=== PATIENT | female | born 1980 | race Caucasian/White ===

== ENCOUNTER → 2020-08-26 09:43 | Outpatient (BNVA) | payer OTHER, SELFPAY | PROVIDERS: Family Provider Family Medicine; PCP Family Medicine; Visit Provider Nurse Practitioner | DX: Z79.899 Other long term (current) drug therapy (principal) | CPT/HCPCS: 80061; 80178; 83036; 83721; 84443 ==

== ENCOUNTER 2020-12-30 10:43 | Emergency (ER) | payer SELFPAY ==
[2020-12-30 11:01] VITALS: BP 143/90; PULSE 93; RESP 18; TEMP 36.3; O2SAT 99; BMI 35.2
--- NOTE | 2020-12-30 11:03 | ED_ITS ---
HPI - Skin/Abscess/Foreign Bdy General: Chief complaint: Skin/Abscess/Foreign Body Stated complaint: abscess Time Seen by Provider: 12/30/20 10:45 Source: patient Mode of arrival: ambulatory Limitations: no limitations History of Present Illness: HPI narrative: Patient is a nice 40-year-old female who presents to ED today with a complaint of an abscess near her genitals. Patient tells me she noticed area over the past week. She states approximately 2 days ago the abscess began draining on its own. She reports a large amount of foul-smelling drainage. Patient states she has no history of staph or MRSA. She has been urinating and defecating normally and non- painfully. She has not been running fevers. MD complaint: abscess/boil Onset (ago): day(s) Tetanus up to date: yes Location: genitals Severity: moderate Pain Consistency: constant Relieving factors: none Exacerbating factors: other (walking, palpation) Context: none Associated symptoms: Reports no associated symptoms; Deny chills, fever(s), nausea or vomiting Review of Systems Const: Denies: fever(s), chills, body aches, fatigue or malaise Card: Denies: chest pain Resp: Denies: dyspnea GI: Denies: abdominal pain, nausea, vomiting, pain on defecation, rectal pain, rectal swelling, rectal itching, change in stool character, hematochezia or white/light colored stool : Denies: dysuria or hematuria Skin/Breast: Reports: other (abscess) [facility] ED PFSH: Medical History (Updated 12/30/20 @ 12:14 by MARGARET Martinez) Bipolar disorder, in full remission, most recent episode hypomanic [place] use On high dose antipsychotic drug therapy Social History (Updated 12/30/20 @ 11:07 by Evert Tee RN) Smoking and tobacco status: current every day smoker e-cigarettes Alcohol intake: never Substance/Drug Use: current Substance/Drug use frequency: few times a month Substance/Drug use type: Marijuana Physical Exam Const: COMMON NORMALS: no acute distress, patient oriented x3, no limitations and alert GENERAL APPEARANCE: cooperative NUTRITIONAL APPEARANCE: obese ORIENTATION/CONSCIOUSNESS: Yes awake, Yes oriented to person, Yes oriented to p lace and Yes oriented to time HENMT: COMMON NORMALS: normocephalic and atraumatic HEAD & SCALP: normocephalic and atraumatic GI: COMMON NORMALS: Normal to inspection, nondistended, normoactive bowel sounds present, Soft to palpation, non-tender, No hepatosplenomegaly present and no masses PALPATION: Yes Soft to palpation and Yes No hepatosplenomegaly present : GENITAL IMAGES (FEMALE): 1. 1 in abscess present; abscess is open; no drainage noted; very minimal surrounding redness Neuro: COMMON NORMALS: patient oriented x3 SENSORIUM/ORIENTATION: Yes alert, Yes oriented to person, Yes oriented to place and Yes oriented to time Procedures Abscess I/D Site: other (perineum) Side (if applicable): left Local Anesthetic: lidocaine 1% Amount of anesthesia used (mL): 5.0 Technique: other (abscess was already unroofed ) Amount of fluid expressed (mL): 0 Irrigation: Yes Packing used?: plain Course Vital Signs: Vital signs: Vital Signs Temperature 97.3 F L 12/30/20 11:01 Pulse Rate 83 12/30/20 12:36 Respiratory Rate 15 12/30/20 12:36 Blood Pressure 118/73 12/30/20 12:36 Pulse Oximetry 97 12/30/20 12:36 MDM - Skin/Abscess/Foreign Bdy MDM Narrative: Medical decision making narrative: Abscess was ultrasounded and I do not appreciate any further fluid collections that need drained. No evidence for deep space infection. Abscess was already opened. Area was anesthetized and probed with a hemostat. Abscess was then packed. She will be instructed to return to the emergency department 48 hours for a wound recheck. Return to ED precautions given to return sooner if she notices acute worsening before that time. She will be placed on Augmentin which will cover for enteric pathogens and staph. She has no hx of MRSA. Patient is not tachycardic or febrile. Do not feel she needs emergent labs/imaging at this time. Discussed how these may be indicated on her next visit if she fails to improve or worsens. Discharge Plan Discharge Patient Disposition: Home Clinical Impression: Abscess of perineum Condition: Stable Prescriptions: New Augmentin 875-125 mg tablet 1 tab PO Q12H 7 Days Qty: 14 RF: 0 tramadol 50 mg tablet 50 mg PO Q6H PRN (Reason: pain) Qty: 14 RF: 0 No Action Rosario's wort 150 mg capsule 150 mg PO BID RF: 0 aripiprazole [Abilify] 5 mg tablet 5 mg PO DAILY Qty: 30 RF: 2 diazepam [Valium] 10 mg tablet 10 mg PO TID PRN (Reason: anxiety) Qty: 90 RF: 2 lithium carbonate 300 mg capsule 300 mg PO TID Qty: 90 RF: 2 sertraline [Zoloft] 100 mg tablet 100 mg PO Q24H Qty: 30 RF: 2 trazodone 100 mg tablet 200 mg PO .HS Qty: 60 RF: 2 Discharge Orders: Discharge ED (Routine); Ordered 12/30/20 Ordered By: Isa Askew Referrals: Kenny Larsen MD [Primary Care Provider] - Patient Instructions: Abscess (ED), Opioid Safety Activity Restrictions/Additional Instructions: [facility] is committed to fighting the nationwide opiate epidemic. We are providing ALL patients with information regarding opiate safety. If you received opiate pain medication during your stay or if you received a prescription for opiate pain medication-please review this handout. If not, you may disregard. Thank you. You need to keep area clean with warm soap and water daily. You may also do sitz baths to help with the discomfort. Be sure not to accidentally remove packing with dressing changes. You need to return to the emergency department 48 hours for wound recheck. Fill/start your antibiotics immediately. Coding Level of Care Code ED [employer] for Leonora Fwd Exam Expanded Problem Focused
[2020-12-30 12:36] VITALS: BP 118/73; PULSE 83; RESP 15; O2SAT 97
== END 2020-12-30 12:37 | disposition home or self-care (01) ==
PROVIDERS: Emergency Provider Physician Assistant; PCP Family Medicine
DX: L02.215 Cutaneous abscess of perineum (principal); F17.290 Nicotine dependence, other tobacco product, uncomplicated
CPT/HCPCS: 56405; 87070; 87075; 87205; 99282

== ENCOUNTER 2021-01-01 10:35 | Emergency (ER) | payer SELFPAY ==
[2021-01-01 10:37] VITALS: BP 164/90; PULSE 105; RESP 18; TEMP 36.6; O2SAT 99; BMI 35.2
--- NOTE | 2021-01-01 10:41 | W.ED.SKABFB ---
HPI - Skin/Abscess/Foreign Bdy General: Chief complaint: Recheck/Abnormal Lab/Rx Stated complaint: Follow up on abcess Time Seen by Provider: 01/01/21 10:39 Source: patient Mode of arrival: ambulatory Limitations: no limitations History of Present Illness: HPI narrative: Patient comes in today for a recheck on a abscess to the left buttock. Patient was instructed to come back today for recheck. Patient appears well. Patient appears in mild pain. Patient has a history of bipolar disorder. Review of Systems General: Reports: 10 or more systems reviewed and unremarkable except in HPI and below Skin/Breast: Reports: other (Abscess) [facility] ED PFSH: Medical History (Updated 01/01/21 @ 10:50 by JESSIE Ruggiero) Bipolar disorder, in full remission, most recent episode hypomanic [place] use On high dose antipsychotic drug therapy Social History (Updated 12/30/20 @ 11:07 by Evert Tee RN) Smoking and tobacco status: current every day smoker e-cigarettes Alcohol intake: never Female Reproductive History: Date of last menstrual period: 12/07/20 Physical Exam Const: COMMON NORMALS: no acute distress and patient oriented x3 GENERAL APPEARANCE: cooperative HENMT: COMMON NORMALS: normocephalic and Normal external nose present HEAD & SCALP: normal to inspection and normocephalic NOSE: Normal external nose present MOUTH: Normal oral and palatal mucosa present Eye: GENERAL EYE: appearance normal, both eyes and all related structures Neck/C-Spine: COMMON NORMALS: full ROM Chest: COMMONS NORMALS: normal inspection of the chest Resp: COMMON NORMALS: normal respiratory effort EFFORT & INSPECTION: Yes able to speak in complete sentences Cardio: COMMON NORMALS: regular rate and regular rhythm RATE: regular rate RHYTHM: regular rhythm GI: COMMON NORMALS: non-tender Back/Pelvis: COMMON NORMALS: thoracic and lumbar spine normal to inspection Extremity: COMMON NORMALS: normal to inspection Neuro: COMMON NORMALS: patient oriented x3 and moves all extremities Psych: COMMON NORMALS: mental status grossly normal and cooperative Skin: NARRATIVE SKIN EXAM: Packing was removed, wound notes some purulent drainage still. Minimal to no redness is surrounding wound at this time. Course Vital Signs: Vital signs: Vital Signs Temperature 97.9 F 01/01/21 10:37 Pulse Rate 105 H 01/01/21 10:37 Respiratory Rate 18 01/01/21 10:37 Blood Pressure 164/90 01/01/21 10:37 Pulse Oximetry 99 01/01/21 10:37 MDM - Skin/Abscess/Foreign Bdy MDM Narrative: Medical decision making narrative: Patient comes in today for recheck on abscess to her left buttock. On exam wound is healing, dressing was removed and packing was removed. Minimal tunneling was noted. Wound was draining purulent drainage. Reviewed exam with patient recommended follow-up valuation with primary care in 2 to 3 days. Patient reported understanding of care plan and need for follow-up or return to the ER as needed. Discharge Plan Discharge Patient Disposition: Home Clinical Impression: Abscess of perineum Condition: Stable Prescriptions: No Action New [place]'s wort 150 mg capsule 150 mg PO BID RF: 0 aripiprazole [Abilify] 5 mg tablet 5 mg PO DAILY Qty: 30 RF: 2 diazepam [Valium] 10 mg tablet 10 mg PO TID PRN (Reason: anxiety) Qty: 90 RF: 2 lithium carbonate 300 mg capsule 300 mg PO TID Qty: 90 RF: 2 sertraline [Zoloft] 100 mg tablet 100 mg PO Q24H Qty: 30 RF: 2 trazodone 100 mg tablet 200 mg PO .HS Qty: 60 RF: 2 Augmentin 875-125 mg tablet 1 tab PO Q12H 7 Days Qty: 14 RF: 0 tramadol 50 mg tablet 50 mg PO Q6H PRN (Reason: pain) Qty: 14 RF: 0 Discharge Orders: Discharge ED (Routine); Ordered 01/01/21 Ordered By: Omar Ng Referrals: Kenny Larsen MD [Primary Care Provider] - Discharge Diet: Usual diet Discharge Activity: Increase activity as tolerated Patient Instructions: Opioid Safety Activity Restrictions/Additional Instructions: Continue care as directed. Drink plenty of water with medication. Follow-up with primary care in 3 days for recheck. Return to the emergency department for new concerns. Coding Level of Care Code ED Belt [employer] for Leonora Fwedward Exam Comprehensive
== END 2021-01-01 10:51 | disposition home or self-care (01) ==
PROVIDERS: Emergency Provider Nurse Practitioner Family; PCP Family Medicine
DX: L02.215 Cutaneous abscess of perineum (principal); F17.290 Nicotine dependence, other tobacco product, uncomplicated
CPT/HCPCS: 99281

== ENCOUNTER → 2021-02-03 08:07 | Outpatient (BNVA) | payer SELFPAY | PROVIDERS: PCP Family Medicine; Visit Provider Nurse Practitioner | DX: F31.72 Bipolar disorder, in full remission, most recent episode hypomanic (principal) | CPT/HCPCS: 99214 ==

== ENCOUNTER 2021-05-03 16:07 | Outpatient (CLI) | payer SELFPAY ==
--- NOTE | 2021-05-03 16:14 | XR_ITS ---
WS: [id number] Right elbow, 2 views, 05/03/2021 Clinical Data: PAIN RT. ELBOW Comparison: None. Findings: No fractures or dislocations are seen. The radial head is normal. The soft tissues are unremarkable. XR/XR elbow RT 2V [id number] Impression: Negative right elbow.
== END 2021-05-03 16:08 | disposition home or self-care (01) ==
LOC: RAD 16:10
PROVIDERS: PCP Family Medicine; Visit Provider Family Medicine
DX: S59.901A Unspecified injury of right elbow, initial encounter (principal); M25.521 Pain in right elbow
CPT/HCPCS: 73070

== ENCOUNTER → 2021-06-08 09:22 | Outpatient (BNVA) | payer OTHER, SELFPAY | PROVIDERS: PCP Family Medicine; Visit Provider Nurse Practitioner | DX: Z79.899 Other long term (current) drug therapy (principal) | CPT/HCPCS: 80178 ==

== ENCOUNTER → 2022-05-30 08:36 | Outpatient (BNVA) | payer OTHER, SELFPAY | PROVIDERS: PCP Family Medicine; Visit Provider Nurse Practitioner | DX: F31.72 Bipolar disorder, in full remission, most recent episode hypomanic (principal); Z79.899 Other long term (current) drug therapy | CPT/HCPCS: 80061; 80178; 83036; 84443 ==

== ENCOUNTER → 2022-06-14 10:08 | Outpatient (BNVA) | payer OTHER, SELFPAY | PROVIDERS: PCP Family Medicine; Visit Provider Nurse Practitioner | DX: Z79.899 Other long term (current) drug therapy (principal) | CPT/HCPCS: 80178 ==

== ENCOUNTER → 2022-11-28 10:16 | Outpatient (BNVA) | payer OTHER, SELFPAY | PROVIDERS: PCP Family Medicine; Visit Provider Nurse Practitioner | DX: Z79.899 Other long term (current) drug therapy (principal) | CPT/HCPCS: 80061; 80178; 83036; 83721 ==

== ENCOUNTER → 2024-08-05 12:03 | Outpatient (BNVA) | payer OTHER, SELFPAY | PROVIDERS: PCP Family Medicine; Visit Provider Nurse Practitioner | DX: Z79.899 Other long term (current) drug therapy (principal) | CPT/HCPCS: 80053; 80061; 80178; 83036; 83721; 84443 ==

== ENCOUNTER 2025-07-09 13:12 | Outpatient (CLI) | payer OTHER, SELFPAY ==
--- NOTE | 2025-07-09 13:19 | MM_ITS ---
WS: [id number] BILATERAL 3D TOMOSYNTHESIS DIGITAL SCREENING MAMMOGRAPHY WITH CAD CLINICAL INFORMATION: SCREENING HISTORY: Screening mammogram. No current complaints. COMPARISON: 2016 TECHNIQUE: Bilateral CC and MLO views. FINDINGS: Scattered fibroglandular densities bilaterally. No suspicious focal mass, asymmetry, calcifications, or architectural distortion. No evidence of malignancy. MM/MM scr BI tomosynthesis [id number] IMPRESSION: DENSITY: There are scattered areas of fibroglandular density. BI-RADS: 1 - Negative. FOLLOW UP: 1 Year Follow-up Recommend return to annual screening mammography.
== END 2025-07-09 13:13 | disposition home or self-care (01) ==
PROVIDERS: Visit Provider Advanced Practice Midwife
DX: Z12.31 Encounter for screening mammogram for malignant neoplasm of breast (principal); R92.323 Mammographic fibroglandular density, bilateral breasts
CPT/HCPCS: 77063; 77067